=== PATIENT | female | born 1940 | race Hispanic/Latino ===

== ENCOUNTER 2017-04-24 11:32 | Inpatient (IN) | payer OTHER ==
[2017-04-24] VITALS (8 sets, daily range): BP systolic 123–140; BP diastolic 76–88
[~2017-04-24] VITALS: Ht 160 cm; Wt 60.1 kg
[~2017-04-24 11:32] MED LIST: ABAT125S SQ; AEC81 PO; CEVI30CA PO; CYAN50TA2 PO; CYCL30DR OU; CYCL5TAB PO; FLUO20CA30 PO; FOLI1TAB15 PO; LISI10TA7 PO; METH2.5T6 PO; METO25TA3 PO; MISO200T PO; NAPR500T6 PO; NITR0.4T50 SL; PRAV20TA PO; PRED1TAB PO; RABE20 PO; ZOLE5INF IV
[2017-04-24] MEDS ORDERED: ISOVUE-370 50ML VIAL IV ONE (12:14)
[2017-04-24] MEDS ORDERED: IOPAMIDOL-370 100 ML VIAL IV ONE (12:14)
[2017-04-24] MEDS ORDERED: LIDOCAINE HCL 2% 20ML ONE (12:15)
[2017-04-24] MEDS ORDERED: HEPARIN SODIUM 1000UNIT/ML 10ML VIAL ONE (12:38)
[2017-04-24] MEDS: FUROSEMIDE 10 MG/ML 4ML VIAL IV SCH ×2 (13:15→23:56)
[2017-04-24] MEDS ORDERED: MISO200T4 PO (13:43)
[2017-04-24] MEDS ORDERED: PRED5TAB PO (13:43)
[2017-04-24] MEDS ORDERED: RABE20TA27 PO (13:43)
[2017-04-24] MEDS ORDERED: CYCL5TAB PO (13:43)
[2017-04-24] MEDS ORDERED: CEVI30CA7 PO (13:43)
[2017-04-24] MEDS ORDERED: LISI10TA7 PO (13:43)
[2017-04-24] MEDS ORDERED: METO-408 PO (13:43)
[2017-04-24] MEDS ORDERED: PRAV20TA4 PO (13:43)
[2017-04-24] MEDS ORDERED: LEFL10TA15 PO (13:43)
[2017-04-24] MEDS ORDERED: FLUO40CA7 PO (13:43)
[2017-04-24] MEDS ORDERED: PREG75 PO (13:43)
[2017-04-24] MEDS ORDERED: ASPI-1197 PO (13:43)
[2017-04-24] MEDS ORDERED: FOLI1TAB15 PO (13:43)
[2017-04-24] MEDS ORDERED: CARVEDILOL 6.25 MG TABLET PO ONE (19:27)
[2017-04-24] MEDS ORDERED: CARVEDILOL 6.25 MG TABLET PO SCH (21:00)
[2017-04-24] MEDS ORDERED: HYDROCODONE/ACETAMINOPHEN 5/325 MG TAB PO PRN (22:00)
[2017-04-25] VITALS (7 sets, daily range): BP systolic 110–134; BP diastolic 53–89
[2017-04-25 04:51] LABS: POTASSIUM 3.6 mmol/L (3.5-5.1)
[2017-04-25] MEDS: ASPIRIN 81MG TAB.CHEW PO SCH (08:30)
[2017-04-25] MEDS: LISINOPRIL 10 MG TABLET PO SCH (08:31)
[2017-04-25] MEDS ORDERED: ATORVASTATIN CALCIUM 20 MG TABLET PO SCH (09:00)
[2017-04-25] MEDS: CARVEDILOL 6.25 MG TABLET PO SCH ×2 (09:11→20:25)
[2017-04-25] MEDS: FUROSEMIDE 40 MG TABLET PO SCH (09:11)
[2017-04-25] MEDS ORDERED: ACETAMINOPHEN 325 MG TAB PO PRN (09:15)
[2017-04-25] MEDS: MISOPROSTOL 200 MCG TABLET PO SCH ×3 (13:00→20:24)
[2017-04-25] MEDS: PREDNISONE 5 MG TABLET PO SCH ×2 (13:11→20:24)
[2017-04-26] VITALS: BP 103/63
[2017-04-26 04:00] VITALS: BP 110/72
[2017-04-26 07:45] VITALS: BP 120/75
[2017-04-26] MEDS: PREGABALIN 75 MG CAPSULE PO SCH (07:50)
[2017-04-26] MEDS: LISINOPRIL 10 MG TABLET PO SCH (07:51)
[2017-04-26] MEDS: ASPIRIN 81MG TAB.CHEW PO SCH (07:51)
[2017-04-26] MEDS: PREDNISONE 5 MG TABLET PO SCH ×3 (07:51→20:49)
[2017-04-26] MEDS: FLUOXETINE HCL 20 MG CAPSULE PO SCH (07:51)
[2017-04-26] MEDS: MISOPROSTOL 200 MCG TABLET PO SCH ×4 (07:51→20:48)
[2017-04-26] MEDS: FUROSEMIDE 40 MG TABLET PO SCH (07:51)
[2017-04-26] MEDS: CARVEDILOL 6.25 MG TABLET PO SCH ×2 (07:52→20:48)
[2017-04-26] MEDS: CEVIMELINE HCL 30 MG PO SCH ×3 (07:53→22:36)
[2017-04-26] MEDS ORDERED: CYCLOBENZAPRINE HCL 10 MG TABLET PO SCH (09:00)
[2017-04-26 11:00] VITALS: BP 116/74
[2017-04-26 11:10] LABS: CREATININE 0.9 mg/dL (0.5-1.5); POTASSIUM 3.2 mmol/L (3.5-5.1)
[2017-04-26 16:43] VITALS: BP 120/54
[2017-04-26 19:46] VITALS: BP 117/77
[2017-04-26] MEDS ORDERED: ATORVASTATIN CALCIUM 20 MG TABLET PO SCH (21:00)
[2017-04-27 00:26] VITALS: BP 108/68
[2017-04-27 04:12] VITALS: BP 101/64
[2017-04-27 07:42] VITALS: BP 121/79
[2017-04-27] MEDS: PREDNISONE 5 MG TABLET PO SCH (10:56)
[2017-04-27] MEDS: ASPIRIN 81MG TAB.CHEW PO SCH (10:56)
[2017-04-27] MEDS: MISOPROSTOL 200 MCG TABLET PO SCH (10:56)
[2017-04-27] MEDS: FUROSEMIDE 40 MG TABLET PO SCH (10:56)
[2017-04-27] MEDS: LISINOPRIL 10 MG TABLET PO SCH (10:56)
[2017-04-27] MEDS: PREGABALIN 75 MG CAPSULE PO SCH (10:56)
[2017-04-27] MEDS: FLUOXETINE HCL 20 MG CAPSULE PO SCH (10:56)
[2017-04-27] MEDS: CARVEDILOL 6.25 MG TABLET PO SCH (10:57)
[2017-04-27] MEDS: CEVIMELINE HCL 30 MG PO SCH (11:00)
[2017-04-27 11:22] VITALS: BP 117/79
[2017-08-04] MEDS ORDERED: RABE20 PO (15:29)
[2017-08-04] MEDS ORDERED: SACU1TAB PO (15:29)
[2017-08-04] MEDS ORDERED: ASPI81TA40 PO (15:29)
[2017-08-04] MEDS ORDERED: CYCL5TAB PO (15:29)
[2017-08-04] MEDS ORDERED: PREG75 PO (15:29)
[2017-08-04] MEDS ORDERED: PRED5TAB PO (15:29)
[2017-08-04] MEDS ORDERED: vitamin b12 PO (15:35)
== END 2017-04-27 17:45 | disposition home or self-care (01) | DRG 286 ==
LOC: EDHIP 12:15 → 2DH 12:57
PROVIDERS: ADMIT Family Medicine; ATTEND Family Medicine
PROC: 4A023N7 Measurement of Cardiac Sampling and Pressure, Left Heart, Percutaneous Approach (ICD-10-PCS; principal; 2017-04-24)
PROC: B2111ZZ Fluoroscopy of Multiple Coronary Arteries using Low Osmolar Contrast (ICD-10-PCS; 2017-04-24)
DX: I11.0 Hypertensive heart disease with heart failure (principal); J15.7 Pneumonia due to Mycoplasma pneumoniae; I25.82 Chronic total occlusion of coronary artery; I50.23 Acute on chronic systolic (congestive) heart failure; I44.7 Left bundle-branch block, unspecified; I25.5 Ischemic cardiomyopathy; F32.9 Major depressive disorder, single episode, unspecified; E78.5 Hyperlipidemia, unspecified; I25.10 Atherosclerotic heart disease of native coronary artery without angina pectoris; K21.9 Gastro-esophageal reflux disease without esophagitis; M06.9 Rheumatoid arthritis, unspecified; Z79.899 Other long term (current) drug therapy; Z88.8 Allergy status to other drugs, medicaments and biological substances; Z88.2 Allergy status to sulfonamides
CPT/HCPCS: 36415; 80048; 93458; C1760; C1894; J1644; J1940; J3490; J7512; Q9967

== ENCOUNTER 2017-08-06 07:57 | Observation (INO) | payer OTHER ==
[2017-08-04 14:45] VITALS: BP 127/77
[2017-08-04 14:50] LABS: BASOPHILS % (AUTO) 0.6 % (0.0-5.0); EOSINOPHILS % (AUTO) 1.7 % (0.0-8.0); HEMATOCRIT 43.9 % (36-48); LYMPHOCYTES % (AUTO) 17.3 % (21.0-51.0); MEAN CORPUSCULAR HEMOGLOBIN 30.5 pg (27.0-33.0); MEAN CORPUSCULAR HGB CONC 33.5 g/dL (32.0-36.0); MEAN CORPUSCULAR VOLUME 91.1 fL (79-99); MONOCYTES % (AUTO) 11.1 % (3.0-13.0); NEUTROPHILS % (AUTO) 69.3 % (40.0-77.0); PLATELET COUNT (AUTO) 224 K/uL (130-400); RED BLOOD CELL COUNT(AUTO) 4.82 MIL/uL (4.00-5.50); RED CELL DISTRIBUTION WIDTH 16.6 % (11.0-15.5); WHITE BLOOD COUNT (AUTO) 8.3 K/uL (4.8-10.8)
[2017-08-04 14:58] LABS: POTASSIUM 3.9 mmol/L (3.5-5.1)
[2017-08-04 21:40] LABS: INR 0.95 (0.85-1.15); PARTIAL THROMBOPLASTIN TIME 24.4 SEC (26.3-35.5)
[~2017-08-06] VITALS: Ht 160 cm; Wt 61.2 kg
[2017-08-06] VITALS (9 sets, daily range): BP systolic 107–131; BP diastolic 68–78
[~2017-08-06 07:57] MED LIST changes: -ABAT125S SQ; -AEC81 PO; +ASPI81TA40 PO; +CEFAZOLIN SODIUM 1 GM VIAL IVP SCH; -CEVI30CA PO; +CEVI30CA7 PO; -CYAN50TA2 PO; -CYCL30DR OU; -FLUO20CA30 PO; +FLUO40CA7 PO; +LEFL10TA15 PO; -LISI10TA7 PO; -METH2.5T6 PO; +METO-408 PO; -METO25TA3 PO; -MISO200T PO; +MISO200T4 PO; -NAPR500T6 PO; -NITR0.4T50 SL; -PRAV20TA PO; +PRAV20TA4 PO; -PRED1TAB PO; +PRED5TAB PO; +PREG75 PO; +SACU1TAB PO; +SODIUM CHLORIDE 0.9% 1000ML 1,000 ML IV SCH; -ZOLE5INF IV; +vitamin b12 PO
[2017-08-06] MEDS ORDERED: LIDOCAINE HCL-MPF 2% 5ML VIAL ONE (10:43)
[2017-08-06] MEDS ORDERED: MIDAZOLAM HCL 1 MG/ML 2ML VIAL ONE ×2 (10:43→11:28)
[2017-08-06] MEDS ORDERED: CEFAZOLIN SODIUM 1 GM VIAL ONE (10:43)
[2017-08-06] MEDS ORDERED: MEPERIDINE-PF 25 MG/ML SYG ONE ×2 (10:43→11:28)
[2017-08-06] MEDS ORDERED: ISOVUE-300 100 ML VIAL IV ONE (10:43)
[2017-08-06] MEDS ORDERED: BUPIVACAINE/PF 0.25% 50ML VIAL IJ ONE (10:43)
[2017-08-06] MEDS ORDERED: CEFAZOLIN 1GM / D5W 50ML 50 ML ONE (11:08)
[2017-08-06] MEDS ORDERED: ONDANSETRON HCL 4 MG/2 ML VIAL IV PRN (12:45)
[2017-08-06] MEDS ORDERED: TEMAZEPAM 30 MG CAP PO PRN (12:45)
[2017-08-06] MEDS: MISOPROSTOL 200 MCG TABLET PO SCH ×3 (13:00→21:00)
[2017-08-06] MEDS: ACETAMINOPHEN 325 MG TAB PO PRN ×2 (15:47→22:46)
[2017-08-06] MEDS ORDERED: CYCLOBENZAPRINE HCL 10 MG TABLET PO SCH (21:00)
[2017-08-06] MEDS ORDERED: PREGABALIN 75 MG CAPSULE PO SCH (21:00)
[2017-08-06] MEDS ORDERED: ATORVASTATIN CALCIUM 10 MG TABLET PO SCH (21:00)
[2017-08-06] MEDS: METOPROLOL TARTRATE 25 MG TAB PO SCH (21:00)
[2017-08-06] MEDS ORDERED: ASPIRIN 81 MG EC TAB PO SCH (21:00)
[2017-08-07 03:54] VITALS: BP 130/77
[2017-08-07 07:39] VITALS: BP 126/85
[2017-08-07] MEDS: MISOPROSTOL 200 MCG TABLET PO SCH (08:52)
[2017-08-07] MEDS: METOPROLOL TARTRATE 25 MG TAB PO SCH (08:52)
[2017-08-07] MEDS ORDERED: CEVIMELINE 30 MG PO SCH (09:00)
[2017-08-07] MEDS ORDERED: **HM** ENTRESTO 24-26MG PO SCH (09:00)
[2017-08-07] MEDS ORDERED: FLUOXETINE HCL 20 MG CAPSULE PO SCH (09:00)
[2017-08-07] MEDS ORDERED: ACIPHEX 20 MG PO SCH (09:00)
[2017-08-07] MEDS ORDERED: LEFLUNOMIDE 10 MG PO SCH (09:00)
[2017-08-07] MEDS ORDERED: PREDNISONE 10 MG TABLET PO SCH (09:00)
[2017-08-07] MEDS ORDERED: FOLIC ACID 1 MG TABLET PO SCH (09:00)
[2017-08-07] MEDS ORDERED: CYANOCOBALAMIN (VITAMIN B-12) 1,000 MCG TABLET PO SCH (09:00)
[2017-08-07] MEDS: ACETAMINOPHEN 325 MG TAB PO PRN (09:01)
[2017-08-07] MEDS ORDERED: LOPERAMIDE HCL 2 MG CAP PO SCH (11:00)
[2017-08-07 11:38] VITALS: BP 123/82
== END 2017-08-07 12:25 | disposition home or self-care (01) ==
LOC: DAH 07:57 → DAHIP 07:58 → 2AH 13:31
PROVIDERS: ADMIT Internal Medicine Cardiovascular Disease; ATTEND Internal Medicine Cardiovascular Disease
DX: I25.5 Ischemic cardiomyopathy (principal); I44.7 Left bundle-branch block, unspecified; I25.10 Atherosclerotic heart disease of native coronary artery without angina pectoris; I25.82 Chronic total occlusion of coronary artery; E78.5 Hyperlipidemia, unspecified; I11.9 Hypertensive heart disease without heart failure; K21.9 Gastro-esophageal reflux disease without esophagitis; Z79.52 Long term (current) use of systemic steroids
CPT/HCPCS: 33225; 33249; 36415; 71045; 80048; 85025; 85610; 85730; A4606; C1769; C1882; C1895 ×2; C1900; G0378 ×28; J0690 ×2; J2175 ×2; J2250 ×2; J3490 ×2; J7512; Q9967; 99156; 99157

== ENCOUNTER → 2018-12-09 | Outpatient (CLI) | payer OTHER ==
[~2018-12-09] MED LIST changes: +AMIO200T5 PO; +ATOR20TA65 PO; -CEFAZOLIN SODIUM 1 GM VIAL IVP SCH; +FURO20TA4 PO; +FURO40TA5 PO; +GABA-529 PO; +LOSA25TA41 PO; +METO5TAB7 PO; +POTA10CA44 PO; -PRAV20TA4 PO; -PREG75 PO; -SACU1TAB PO; -SODIUM CHLORIDE 0.9% 1000ML 1,000 ML IV SCH
== END | disposition home or self-care (01) ==
LOC: RAH 13:15
PROVIDERS: ATTEND Internal Medicine Critical Care Medicine
DX: R91.8 Other nonspecific abnormal finding of lung field (principal); I25.10 Atherosclerotic heart disease of native coronary artery without angina pectoris
CPT/HCPCS: 71250